=== PATIENT | female | born 1955 | race Caucasian/White ===

== ENCOUNTER → 2021-04-03 | Outpatient (CLI) | payer MEDICARE | LOC: WCC 14:30 | DX: I87.313 Chronic venous hypertension (idiopathic) with ulcer of bilateral lower extremity (principal); L97.825 Non-pressure chronic ulcer of other part of left lower leg with muscle involvement without evidence of necrosis; L97.812 Non-pressure chronic ulcer of other part of right lower leg with fat layer exposed; R60.1 Generalized edema; M79.662 Pain in left lower leg; I10 Essential (primary) hypertension; M79.7 Fibromyalgia; E66.01 Morbid (severe) obesity due to excess calories; Z72.0 Tobacco use; F41.9 Anxiety disorder, unspecified | CPT/HCPCS: 97597; 97598 ==

== ENCOUNTER → 2021-04-10 | Outpatient (CLI) | payer MEDICARE | LOC: WCC 13:50 | DX: I87.313 Chronic venous hypertension (idiopathic) with ulcer of bilateral lower extremity (principal); I70.248 Atherosclerosis of native arteries of left leg with ulceration of other part of lower leg; L97.822 Non-pressure chronic ulcer of other part of left lower leg with fat layer exposed; I70.238 Atherosclerosis of native arteries of right leg with ulceration of other part of lower leg; L97.812 Non-pressure chronic ulcer of other part of right lower leg with fat layer exposed; I10 Essential (primary) hypertension; M79.7 Fibromyalgia; E66.01 Morbid (severe) obesity due to excess calories; Z68.36 Body mass index [BMI] 36.0-36.9, adult; K58.9 Irritable bowel syndrome, unspecified; E03.9 Hypothyroidism, unspecified; F17.200 Nicotine dependence, unspecified, uncomplicated ==

== ENCOUNTER → 2021-04-20 | Outpatient (CLI) | payer MEDICARE | LOC: WCC 13:24 | DX: I87.313 Chronic venous hypertension (idiopathic) with ulcer of bilateral lower extremity (principal); R60.1 Generalized edema; M79.662 Pain in left lower leg; I10 Essential (primary) hypertension; M79.7 Fibromyalgia; E66.01 Morbid (severe) obesity due to excess calories; B96.5 Pseudomonas (aeruginosa) (mallei) (pseudomallei) as the cause of diseases classified elsewhere; E03.9 Hypothyroidism, unspecified; K58.9 Irritable bowel syndrome, unspecified; Z68.36 Body mass index [BMI] 36.0-36.9, adult | CPT/HCPCS: 87070; 87077; 87186; 87205 ==

== ENCOUNTER → 2021-05-03 | Outpatient (CLI) | payer MEDICARE | LOC: WCC 13:24 | DX: I87.313 Chronic venous hypertension (idiopathic) with ulcer of bilateral lower extremity (principal); L97.822 Non-pressure chronic ulcer of other part of left lower leg with fat layer exposed; L97.812 Non-pressure chronic ulcer of other part of right lower leg with fat layer exposed; I10 Essential (primary) hypertension; M79.7 Fibromyalgia; E66.01 Morbid (severe) obesity due to excess calories; B96.5 Pseudomonas (aeruginosa) (mallei) (pseudomallei) as the cause of diseases classified elsewhere; Z72.0 Tobacco use; Z88.5 Allergy status to narcotic agent; Z88.0 Allergy status to penicillin; Z88.8 Allergy status to other drugs, medicaments and biological substances ==